=== PATIENT | female | born 1935 ===

== ENCOUNTER 2018-03-03 08:15 | Day surgery (SDC) | payer OTHER ==
[~2018-03-03 08:15] MED LIST: AMLODIPINE BES2.5 MG PO; ANASTROZOLE1 MG PO; HUMULIN 70100 UNIT/1; SIMVASTATIN20 MG PO; SYNTHROID75 MCG PO; [UNRECOGNIZED DRUG - OTHER] PO
[2018-03-03] MEDS ORDERED: PERCOCET 5-3251 EACH PO (12:35)
[2018-03-03] MEDS ORDERED: RECTICARE30 GM TOP (12:37)
== END 2018-03-03 14:35 | disposition home or self-care (01) ==
LOC: CIR.AMB 08:15
DX: C21.1 Malignant neoplasm of anal canal (principal)